=== PATIENT | male | born 1975 | race Caucasian/White ===

== ENCOUNTER 2022-04-26 19:45 | Emergency (ER) | payer OTHER ==
[~2022-04-26] VITALS: Ht 157.5 cm; Wt 96.6 kg
[2022-04-26 20:05] VITALS: BP 148/100
--- NOTE | 2022-04-26 20:13 | NUR ---
PT AMBULATED TO BED#6
[2022-04-26 20:36] LABS: BASOPHILS # (AUTO) 0.1 K/uL (0.00-0.22); EOSINOPHILS # (AUTO) 0.2 K/uL (0-0.4); HEMATOCRIT 46.9 % (36-52); HEMOGLOBIN 15.9 g/dL (12.0-18.0); LYMPHOCYTES # (AUTO) 2.8 K/uL (2.0-11.5); LYMPHOCYTES % (AUTO) 25.4 % (20.5-51.1); MEAN CORPUSCULAR HEMOGLOBIN 31 pg (27-31); MEAN CORPUSCULAR HGB CONC 34 g/dL (33-37); MEAN CORPUSCULAR VOLUME 90.2 fL (80-94); MONOCYTES # (AUTO) 0.7 K/uL (0.8-1.0); NEUTROPHILS # (AUTO) 7.2 K/uL (1.8-7.7); NEUTROPHILS % (AUTO) 65.6 % (42.2-75.2); PLATELET COUNT (AUTO) 248 K/uL (140-450); RED CELL DISTRIBUTION WIDTH 14.4 % (11.6-13.7)
--- NOTE | 2022-04-26 20:52 | NUR ---
PATIENT PRESENTS TO ED WITH BILAT ANKLE SWELLING. PT STATES IT HAS BEEN LIKE THIS FOR A WEEK. PT HAS HAD THIS BEFORE BUR IT GOES AWAY. PT STATES HE ELEVATED LEGS BUT IT DID NOT HELP. PT STATES NO PAIN. DENIES N/V/D; SKIN IS PINK/WARM/DRY; AAOX4 WITH EVEN AND STEADY GAIT; HR EVEN AND REGULAR; PT DENIES ANY FEVER, CP, SOB, OR COUGH AT THIS TIME; PATIENT STATES PAIN OF 0/10 AT THIS TIME; VSS; ; HOB ELEVATED; BEDRAILS UP X2; BED DOWN. PMH: HTN RX:LOSARTAN 100MG PT IS COMPLIANT NKA
[2022-04-26 20:59] LABS: ALBUMIN 3.8 g/dL (3.4-5.0); ANION GAP 13.9 (8-16); CARBON DIOXIDE 25.7 mmol/L (21-32); CREATININE 1.5 mg/dL (0.6-1.3); POTASSIUM 3.6 mmol/L (3.5-5.1); TOTAL BILIRUBIN 0.6 mg/dL (0.0-1.0)
[2022-04-26] MEDS ORDERED: [UNRECOGNIZED DRUG - CODE] MC (21:42)
[2022-04-26 22:25] VITALS: BP 180/99
--- NOTE | 2022-04-26 22:25 | NUR ---
Patient discharged with v/s stable. Written and verbal after care instructions given and explained. Patient alert, oriented and verbalized understanding of instructions. Ambulatory with steady gait. All questions addressed prior to discharge. ID band removed. Patient advised to follow up with PMD. Rx of compression socks given. Opportunity to ask questions provided and answered.
--- NOTE | 2022-04-26 22:34 | NUR ---
The patient's care was reviewed and supervised by Елена Boyd RN.
== END 2022-04-26 22:25 | disposition home or self-care (01) ==
LOC: MED 19:45
DX: R60.0 Localized edema (principal)
CPT/HCPCS: 36415; 71045; 80053; 83880; 85025; 93005; 99285